=== PATIENT | male | born 1960 ===

== ENCOUNTER 2017-03-24 14:54 | Emergency (ER) | payer MEDICARE, MEDICAID ==
[~2017-03-24] VITALS: Ht 185.4 cm; Wt 110.0 kg
[~2017-03-24 14:54] MED LIST: ALFU1TAB10 PO; AMBI10TA PO; CAPT25TA2 PO; EPIZICOM PO; GEMF600 PO; GLIP-146 PO; HYDR-3533 PO; IBUP-232 PO; LIPI80TA16 PO; LORT5TAB PO; METHO500 PO; NAPR500 PO; NOVOLOGP2 SQ; ROSI1TAB24 PO; UROCTAB2 PO; [UNRECOGNIZED DRUG - CODE] PO; [UNRECOGNIZED DRUG - OTHER] SC
[2017-03-24 14:56] VITALS: BP 190/103; PULSE 89; RESP 20; TEMP 97.7; O2SAT 94
--- NOTE | 2017-03-24 15:04 | PD ---
Physical Exam Time Seen by Provider: 15:03 Narrative 56yo M c/o N and V since last night. Denies abd pain or diarrhea. Denies fever. Patient seen in triage. Awaiting bed placement. VS reviewed. Data Data Last Documented VS Vital Signs Date Time Temp Pulse Resp B/P Pulse Ox O2 Delivery O2 Flow Rate FiO2 03/24/17 14:56 97.7 89 20 190/103 94 MDM Supervised Visit with ERA: Jeimy Peace March 24, 2017 15:03
[2017-03-24] MEDS ORDERED: SODIUM CHLOR 0.9% 1000 ML INJ 1,000 ML IV SCH (15:56)
[2017-03-24] MEDS ORDERED: MECLIZINE HCL 25 MG TAB PO ONE (16:00)
[2017-03-24] MEDS ORDERED: ONDANSETRON HCL 4 MG/2 ML VIAL IVP ONE (16:00)
[2017-03-24] MEDS ORDERED: SODIUM CHLORIDE 0.9% FLUSH 10 ML FLUSH IV FLUSH PRN (16:00)
--- NOTE | 2017-03-24 16:10 | PD ---
HPI Chief Complaint: GI Complaint Time Seen by Provider: 15:55 Travel History International Travel<30 days: No Contact w/Intl Traveler<30days: No Traveled to known affect area: No History of Present Illness HPI This patient speaks [place]. He declines official educational sign language interpreter. All communication was through his friend who speaks [place] and [place]. 56-year- old male with history of diabetes, HIV presents for evaluation of nausea and vomiting. He reports that yesterday he had a dental procedure and he was prescribed Lortab. He took Lortab in the afternoon and a few hours later he began experiencing nausea and vomiting. He is also had a dizziness sensation which she describes as a "spinning" sensation. Today the nausea and vomiting persisted which prompted evaluation. He is denying abdominal pain, chest pain or shortness of breath, blurred vision, fevers or chills, diarrhea. Besides the Lortab he denies any new medications. His friend reports that she ate essentially the same foods as him yesterday except he ate some [employer]. History of cholecystectomy. No other complaints. PFSH Past Medical History Diabetes: Yes (INSULIN DEPENDANT) Immune Disorder: Yes (HIV +) Immunizations Current: Yes Past Surgical History Abdominal Surgery: Yes (HERNIA SURGERY) Cholecystectomy: Yes Thoracic Surgery: Yes (LUNG BIOPSY) Social History Alcohol Use: No Tobacco Use: No Allergies-Medications (Allergen,Severity, Reaction): Coded Allergies: No Known Allergies (Verified , 10/06/14) Reported Meds & Prescriptions Reported Meds & Active Scripts Active Phenergan (Promethazine HCl) 25 Mg Tab 25 Mg PO Q6H PRN Robaxin 500 Mg Tab (Methocarbamol) 500 Mg Tab 500 Mg PO TID PRN Naprosyn (Naproxen) 500 Mg Tab 500 Mg PO BID Lortab 5 mg/325 mg (Hydrocodone/Acetaminophen 5 mg/325 mg) 1 Tab 1 Tab PO Q6H PRN Uroxatral (Alfuzosin HCl) 10 Mg Tab 10 Mg PO DAILY Motrin (Ibuprofen) 600 Mg Tab 600 Mg PO TID Lortab 5/500 (Acetaminophen/Hydrocodone Bitart) 5 Mg/500 Mg Tab 1 Tab PO QIDPRN FOR PAIN Reported Avandia (Rosiglitazone Maleate) 4 Mg Tab 4 Mg PO DAILY Ambien (Zolpidem Tartrate) 10 Mg Tab 10 Mg PO HS Capoten 25 mg (Captopril) 25 Mg Tab 25 Mg PO DAILY Glucotrol Xl (Glipizide) 10 Mg Tab 10 Mg PO DAILY Novolog (Insulin Aspart) 100 Units/Ml Inj 18 Units SQ DIRECTED [Lememir] 28 Units SC HS Urocit-K 10 (Potassium Citrate/Citric Acid) 1,080 Mg Tab 1,080 Mg PO DAILY Lipitor (Atorvastatin Calcium) 80 Mg Tab 80 Mg PO DAILY Lopid (Gemfibrozil) 600 Mg Tab 600 Mg PO BID [Epizicom] 1 Tab PO DAILY Viracept (Nelfinavir Mesylate) 625 Mg Tab 1,250 Mg PO BID Review of Systems Except as stated in HPI: all other systems reviewed are Neg Physical Exam Narrative GENERAL: Pleasant well developed well-nourished male in no acute distress resting comfortably in hospital bed SKIN: Warm and dry. HEAD: Atraumatic. Normocephalic. EYES: Pupils equal and round. No scleral icterus. No injection or drainage. No nystagmus. ENT: No nasal bleeding or discharge. Mucous membranes pink and moist. NECK: Trachea midline. No JVD. CARDIOVASCULAR: Regular rate and rhythm. No murmur appreciated. RESPIRATORY: No accessory muscle use. Clear to auscultation. Breath sounds equal bilaterally. GASTROINTESTINAL: Abdomen soft, minimal epigastric/right upper quadrant tenderness without guarding. No CVA tenderness. MUSCULOSKELETAL: No obvious deformities.No edema. NEUROLOGICAL: Awake and alert. No obvious cranial nerve deficits. Motor grossly within normal limits. Normal speech. PSYCHIATRIC: Appropriate mood and affect; insight and judgment normal. Data Data Last Documented VS Vital Signs Date Time Temp Pulse Resp B/P Pulse Ox O2 Delivery O2 Flow Rate FiO2 03/24/17 18:46 76 16 97 03/24/17 14:56 97.7 190/103 Orders Complete Blood Count With Diff (03/24/17 15:56) Comprehensive Metabolic Panel (03/24/17 15:56) Lipase (03/24/17 15:56) Iv Access Insert/Monitor (03/24/17 15:56) Ecg Monitoring (03/24/17 15:56) Oximetry (03/24/17 15:56) Ondansetron Inj (Zofran Inj) (03/24/17 16:00) Sodium Chlor 0.9% 1000 Ml Inj (Ns 1000 M (03/24/17 15:56) Sodium Chloride 0.9% Flush (Ns Flush) (03/24/17 16:00) Electrocardiogram (03/24/17 15:56) Magnesium (Mg) (03/24/17 15:56) Blood Glucose (03/24/17 15:56) Meclizine (Antivert) (03/24/17 16:00) Labs Laboratory Tests Test 03/24/17 16:15 White Blood Count 6.0 TH/MM3 Red Blood Count 4.82 MIL/MM3 Hemoglobin 14.9 GM/DL Hematocrit 45.7 % Mean Corpuscular Volume 94.8 FL Mean Corpuscular Hemoglobin 31.0 PG Mean Corpuscular Hemoglobin 32.7 % Concent Red Cell Distribution Width 14.3 % Platelet Count 196 TH/MM3 Mean Platelet Volume 9.4 FL Neutrophils (%) (Auto) 68.6 % Lymphocytes (%) (Auto) 22.9 % Monocytes (%) (Auto) 7.0 % Eosinophils (%) (Auto) 0.9 % Basophils (%) (Auto) 0.6 % Neutrophils # (Auto) 4.1 TH/MM3 Lymphocytes # (Auto) 1.4 TH/MM3 Monocytes # (Auto) 0.4 TH/MM3 Eosinophils # (Auto) 0.1 TH/MM3 Basophils # (Auto) 0.0 TH/MM3 CBC Comment DIFF FINAL Differential Comment Sodium Level 141 MEQ/L Potassium Level 3.8 MEQ/L Chloride Level 102 MEQ/L Carbon Dioxide Level 28.2 MEQ/L Anion Gap 11 MEQ/L Blood Urea Nitrogen 26 MG/DL Creatinine 1.51 MG/DL Estimat Glomerular Filtration 48 ML/MIN Rate Random Glucose 207 MG/DL Calcium Level 10.4 MG/DL Magnesium Level 2.1 MG/DL Total Bilirubin 0.6 MG/DL Aspartate Amino Transf 20 U/L (AST/SGOT) Alanine Aminotransferase 24 U/L (ALT/SGPT) Alkaline Phosphatase 38 U/L Total Protein 8.8 GM/DL Albumin 4.7 GM/DL Lipase 124 U/L [facility] Medical Decision Making Medical Screen Exam Complete: Yes Emergency Medical Condition: Yes Medical Record Reviewed: Yes Differential Diagnosis Gastroenteritis, adverse reaction to Lortab, peripheral vertigo, central vertigo , dehydration, electrolyte imbalance, DKA Narrative Course 56-year-old male has been experiencing nausea and vomiting as well as a vertigo sensation since yesterday evening. Symptoms started a few hours after taking Lortab which he was prescribed for a dental procedure. He is denying abdominal pain and on examination he has no pain in the epigastrium/right upper quadrant, history of cholecystectomy. He appears well overall. Plan is for EKG, basic lab work, ECG monitoring pulse oximetry. The patient will be given IV Zofran, oral meclizine and IV fluids for symptom relief. He will be monitored closely. Upon reexamination the patient feels significantly improved. His laboratory is been reviewed. He does have mild renal insufficiency, unclear as to the chronicity as he has not had any labs here in 6 years. The patient be discharged with Phenergan for nausea. Discussed signs and symptoms that would warrant returning to the emergency room. Diagnosis Primary Impression: Nausea and vomiting Qualified Code: R11.2 - Nausea and vomiting, intractability of vomiting not specified, unspecified vomiting type Additional Impression: Adverse drug reaction Qualified Code: T88.7XXA - Adverse drug reaction, initial encounter Additional Instructions: Medication as needed for nausea. Slowly advance diet as tolerated. Stay well hydrated well-nourished. Return for any acutely new or worsening symptoms. Med/Other Pt SpecificInfo: Prescription(s) given Scripts Promethazine (Phenergan)25 Mg Tab25 Mg PO Q6H PRN (Nausea/Vomiting) #20 TAB Ref 0 Prov:Sagar Roman MD 03/24/17 Disposition: 01 DISCHARGE HOME Condition: Stable Joseph Hoang March 24, 2017 16:10
[2017-03-24 16:40] LABS: AUTOMATED NEUTROPHIL # 4.1 TH/MM3 (1.8-7.7); BASOPHIL % 0.6 % (0.0-2.0); EOSINOPHIL # 0.1 TH/MM3 (0-0.4); EOSINOPHIL % 0.9 % (0.0-4.0); HEMATOCRIT 45.7 % (39.0-51.0); HEMO FLAGS DIFF FINAL; LYMPH % 22.9 % (9.0-44.0); LYMPHOCYTE # 1.4 TH/MM3 (1.0-4.8); MEAN CELL VOLUME 94.8 FL (80.0-100.0); MEAN CORPUSCULAR HGB CONC 32.7 % (32.0-36.0); NEUT % 68.6 % (16.0-70.0); PLATELET COUNT 196 TH/MM3 (150-450); RED BLOOD COUNT 4.82 MIL/MM3 (4.50-5.90); RED CELL DISTRIBUTION WIDTH 14.3 % (11.6-17.2)
[2017-03-24 17:53] VITALS: O2SAT 95
[2017-03-24 18:12] LABS: ANION GAP 11 MEQ/L (5-15); AST (GOT) 20 U/L (15-37); BICARBONATE 28.2 MEQ/L (21.0-32.0); BLOOD UREA NITROGEN 26 MG/DL (7-18); CHLORIDE 102 MEQ/L (98-107); GLOMERULAR FILTRATION RATE 48 ML/MIN (>89); MAGNESIUM 2.1 MG/DL (1.5-2.5); POTASSIUM 3.8 MEQ/L (3.5-5.1); SODIUM (NA) 141 MEQ/L (136-145)
[2017-03-24 18:15] LABS: ALKALINE PHOSPHATASE 38 U/L (45-117); ALT (GPT) 24 U/L (12-78); TOTAL BILIRUBIN ADULT 0.6 MG/DL (0.2-1.0)
[2017-03-24] MEDS ORDERED: PROM25TA5 PO (18:48)
[2017-03-24 18:53] VITALS: BP 120/71
--- NOTE | 2017-03-25 21:45 | EKG ---
Date Performed: 03/24/2017 Time Performed: 16:07:12 PTAGE: 56 years EKG: Sinus rhythm POSSIBLE LEFT ATRIAL ENLARGEMENT BORDERLINE ECG NO PREVIOUS TRACING DOCTOR: Tonny Massey Interpretating Date/Time 03/25/2017 21:44:16
== END 2017-03-24 18:53 | disposition home or self-care (01) ==
LOC: NEPD 14:54
DX: R11.2 Nausea with vomiting, unspecified (principal); T40.2X5A Adverse effect of other opioids, initial encounter; T39.1X5A Adverse effect of 4-Aminophenol derivatives, initial encounter; R42 Dizziness and giddiness; N28.9 Disorder of kidney and ureter, unspecified; R94.31 Abnormal electrocardiogram [ECG] [EKG]; E11.9 Type 2 diabetes mellitus without complications; Z21 Asymptomatic human immunodeficiency virus [HIV] infection status; Y92.009 Unspecified place in unspecified non-institutional (private) residence as the place of occurrence of the external cause
CPT/HCPCS: 80053; 83690; 83735; 85025; 93005; 96361; 96374; 99284; J2405; J7030